=== PATIENT | male | born 1975 | race Caucasian/White ===

== ENCOUNTER 2019-02-07 14:12 | Emergency (ER) | payer MEDICARE, MEDICAID | END 2019-02-07 15:47 | disposition left against medical advice (07) | LOC: NAV ERS 14:12 | DX: S09.93XA Unspecified injury of face, initial encounter (principal); S69.91XA Unspecified injury of right wrist, hand and finger(s), initial encounter; S69.92XA Unspecified injury of left wrist, hand and finger(s), initial encounter; E78.00 Pure hypercholesterolemia, unspecified; I10 Essential (primary) hypertension; I25.2 Old myocardial infarction; F31.9 Bipolar disorder, unspecified; Z87.891 Personal history of nicotine dependence; Z79.899 Other long term (current) drug therapy; Y04.0XXA Assault by unarmed brawl or fight, initial encounter | CPT/HCPCS: 99283 ==